=== PATIENT | female | born 1980 | race Caucasian/White ===

== ENCOUNTER 2018-11-02 15:57 | Inpatient (IN) | payer OTHER ==
[~2018-11-02] VITALS: Ht 167.6 cm; Wt 84.2 kg
--- NOTE | 2018-11-02 16:17 | NUR ---
PT ARRIVES TO ED VIA EMS FOR NEW ONSET OF CHEST PRESSURE AND TIGHTNESS DESCRIBED A HUGE WEIGHT ON HER CHEST. PT REPORTS FEELING ILL FOR 1 WEEK. PT DENIES TRUAMA PT HAS PREVIOUS HX OF TIA. PT REPORTS RIGHT SIDED WEAKNESS. PT HAD MD KENNEDY TO BEDSIDE FOR EVAL AND NO CODE NEUOR NECESSRY. PT CONNECTED TO ALL MONITORS AND EKG COMPLETED. 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 PT GOT 0.4 OF NITRO AND 326 ASA EN ROUTE. PT IS DIAPHORETIC AND NOTICEBLY UNCOMFORTABLE. AWARE.
--- NOTE | 2018-11-02 16:26 | NUR ---
EKG COMPLETED. PT RESTING.
[2018-11-02] MEDS ORDERED: SODIUM CHLORIDE FLUSH 10ML SYR IVF ONE (17:00)
[2018-11-02] MEDS ORDERED: ASPIRIN 81 MG TABLET CHEW PO ONE (17:00)
[2018-11-02 17:17] LABS: BASOPHILS # (AUTO) 0.06 x10^3/uL (0-0.1); BASOPHILS % (AUTO) 1 % (0-1); EOSINOPHILS # (AUTO) 0.47 x10^3/uL (0-0.4); EOSINOPHILS % (AUTO) 4 % (1-7); LYMPHOCYTES # (AUTO) 2.48 x10^3/uL (1-3.4); LYMPHOCYTES % (AUTO) 22 % (22-44); MD NO; MEAN CORPUSCULAR HEMOGLOBIN 29.4 pg (27.0-34.8); MEAN CORPUSCULAR HGB CONC 33.4 g/dL (32.4-35.8); MEAN CORPUSCULAR VOLUME 88.2 fL (80-100); MEAN PLATELET VOLUME 8.6 fL (7.4-10.4); MONOCYTES # (AUTO) 0.74 x10^3/uL (0.2-0.8); MONOCYTES % (AUTO) 7 % (2-9); NEUTROPHILS # (AUTO) 7.59 x10^3/uL (1.8-6.8); NEUTROPHILS % (AUTO) 67 % (42-75); PLATELET COUNT 299 x10^3/uL (130-400); RED BLOOD COUNT 4.49 x10^6/uL (3.82-5.3); RED CELL DISTRIBUTION WIDTH 14.8 % (9.6-15.2)
[2018-11-02 17:25] LABS: ALBUMIN 3.5 g/dL (3.4-5.0); ANION GAP 7 mmol/L (5-15); CALCIUM 8.4 mg/dL (8.5-10.1); CHLORIDE 108 mmol/L (98-107); CREATININE 0.63 mg/dL (0.55-1.02)
--- NOTE | 2018-11-02 17:26 | NUR ---
PTS FAMILY TO BEDSIDE. LABS TO BE DRAWN.
[2018-11-02 17:29] LABS: TROPONIN I < 0.015 ng/mL (0.000-0.045)
[2018-11-02] MEDS ORDERED: BISACODYL 10 MG SUPP PR PRN (19:00)
[2018-11-02] MEDS ORDERED: morphine SULFATE 10 MG/ML, 1ML IVPush PRN (19:00)
[2018-11-02] MEDS ORDERED: ACETAMINOPHEN 325 MG TABLET PO PRN (19:00)
[2018-11-02] MEDS ORDERED: NITROGLYCERIN 0.4 MG BOTTLE (25 TABS) SL PRN (19:00)
[2018-11-02] MEDS ORDERED: POLYETHYLENE GLYCOL 17 GM PACKET PO PRN (19:00)
[2018-11-02] MEDS ORDERED: ONDANSETRON ODT 4 MG PO PRN (19:00)
[2018-11-02 20:44] VITALS: BP 110/68
[2018-11-02] MEDS: HEPARIN 5,000 UNITS/ML, 1ML SQ SCH (20:55)
[2018-11-02] MEDS: SODIUM CHLORIDE FLUSH 10ML SYR IVF SCH (20:57)
[2018-11-02 23:37] LABS: TROPONIN I < 0.015 ng/mL (0.000-0.045)
[2018-11-03 03:15] VITALS: BP 108/70
[2018-11-03] MEDS: HEPARIN 5,000 UNITS/ML, 1ML SQ SCH ×2 (04:39→13:00)
[2018-11-03 06:00] LABS: BASOPHILS # (AUTO) 0.05 x10^3/uL (0-0.1); BASOPHILS % (AUTO) 1 % (0-1); EOSINOPHILS # (AUTO) 0.42 x10^3/uL (0-0.4); EOSINOPHILS % (AUTO) 5 % (1-7); LYMPHOCYTES # (AUTO) 2.79 x10^3/uL (1-3.4); LYMPHOCYTES % (AUTO) 32 % (22-44); MD NO; MEAN CORPUSCULAR HEMOGLOBIN 29.2 pg (27.0-34.8); MEAN CORPUSCULAR HGB CONC 33.2 g/dL (32.4-35.8); MEAN CORPUSCULAR VOLUME 88.1 fL (80-100); MEAN PLATELET VOLUME 8.9 fL (7.4-10.4); MONOCYTES # (AUTO) 0.63 x10^3/uL (0.2-0.8); MONOCYTES % (AUTO) 7 % (2-9); NEUTROPHILS # (AUTO) 4.74 x10^3/uL (1.8-6.8); NEUTROPHILS % (AUTO) 55 % (42-75); PLATELET COUNT 273 x10^3/uL (130-400); RED BLOOD COUNT 4.38 x10^6/uL (3.82-5.3); RED CELL DISTRIBUTION WIDTH 14.4 % (9.6-15.2)
[2018-11-03] MEDS ORDERED: ASPIRIN 81 MG TABLET EC PO SCH (06:00)
[2018-11-03 06:07] LABS: ALANINE AMINOTRANSFERASE 54 U/L (12-78); ALBUMIN 3.3 g/dL (3.4-5.0); ANION GAP 5 mmol/L (5-15); CALCIUM 8.5 mg/dL (8.5-10.1); CHLORIDE 109 mmol/L (98-107)
[2018-11-03 06:13] LABS: ALKALINE PHOSPHATASE 62 U/L (45-117); BILIRUBIN,TOTAL 0.3 mg/dL (0.2-1.0); CHOL/HDL RATIO 4.9; CHOLESTEROL, TOTAL 143 mg/dL (140-239); CREATININE 0.65 mg/dL (0.55-1.02); HDL CHOL % 20 % (28-40); HDL CHOLESTEROL (DIRECT) 29 mg/dL (40-60); LDL CHOLESTEROL,CALCULATED 70 mg/dL (54-169); LDL/HDL RATIO 2.4 (0.5-3.0); TRIGLYCERIDES 222 mg/dL (50-200); TROPONIN I < 0.015 ng/mL (0.000-0.045); VLDL CHOLESTEROL 44 mg/dL (0-25)
[2018-11-03 06:50] VITALS: BP 111/73
[2018-11-03] MEDS: SODIUM CHLORIDE FLUSH 10ML SYR IVF SCH (08:56)
[2018-11-03] MEDS ORDERED: SENNA/DOCUSATE TABLET PO SCH (09:00)
[2018-11-03] MEDS ORDERED: REGADENOSON 0.4 MG/5 ML SYRINGE ONE (10:23)
[2018-11-03 13:20] VITALS: BP 122/84
[2018-11-03] MEDS ORDERED: ASPI81TA45 PO (13:37)
== END 2018-11-03 16:25 | disposition home or self-care (01) | DRG 392 ==
LOC: ED 18:08 → EDIP 18:54 → 5SO 20:46 → DCLOUNGE 11-03 16:25
PROVIDERS: ADMIT Internal Medicine; ATTEND Internal Medicine
DX: K21.9 Gastro-esophageal reflux disease without esophagitis (principal); I20.0 Unstable angina; E78.1 Pure hyperglyceridemia; I10 Essential (primary) hypertension; R20.2 Paresthesia of skin; Z90.710 Acquired absence of both cervix and uterus; Z91.14 Patient's other noncompliance with medication regimen; Z82.49 Family history of ischemic heart disease and other diseases of the circulatory system; Z90.49 Acquired absence of other specified parts of digestive tract
CPT/HCPCS: 36415; 71045; 72040; 78452; 80048; 80053; 80061; 82040; 84443; 84484; 85025; 93005; 93017; 99285; G0378; J1644; J2785; A9502; C9898